=== PATIENT | male | born 1990 | race Caucasian/White ===

== ENCOUNTER 2019-03-31 15:23 | Emergency (ER) | payer SELFPAY ==
[~2019-03-31] VITALS: Ht 182.9 cm; Wt 69.9 kg
[2019-03-31 15:35] VITALS: BP 154/65
== END 2019-03-31 17:11 | disposition home or self-care (01) ==
LOC: ER 15:25
DX: S63.286A Dislocation of proximal interphalangeal joint of right little finger, initial encounter (principal); X58.XXXA Exposure to other specified factors, initial encounter; Y93.61 Activity, american tackle football; Y92.89 Other specified places as the place of occurrence of the external cause; Y99.8 Other external cause status
CPT/HCPCS: 73140-TC